=== PATIENT | female | born 1970 | race Two or more races ===

== ENCOUNTER 2020-06-28 08:59 | Inpatient (IN) | payer MEDICAID ==
[~2020-06-28] VITALS: Ht 170.2 cm; Wt 88.5 kg
[2020-06-28] MEDS ORDERED: AZITHROMYCIN 500MG/ 250ML 250 ML IV ONE (10:00)
[2020-06-28] MEDS ORDERED: methylPREDNISolone SOD SUCC 125 MG/2 ML VL IV ONE (10:00)
[2020-06-28] MEDS ORDERED: SODIUM CHLORIDE 0.9% 500 ML IV ONE (10:00)
[2020-06-28 10:50] LABS: Basophils # (auto) 0 10 ^3/uL (0-0.2); Basophils % (auto) 0.3 % (0.0-2.0); Eosinophils # (auto) 0 10 ^3/uL (0-0.8); Eosinophils % (auto) 0.3 % (0.0-7.0); Hematocrit 43.6 % (36.0-46.0); Hemoglobin 14.9 g/dL (12.2-16.2); Lymphocytes # (auto) 0.8 10 ^3/uL (0.4-5.4); Lymphocytes % (auto) 20.6 % (10.0-50.0); Mean Corpuscular Hgb Conc. 34.2 g/dL (32.0-36.0); Mean Corpuscular Volume 87.7 fL (80.0-100.0); Monocytes # (auto) 0.4 10 ^3/uL (0-1.3); Monocytes % (auto) 9.7 % (0.0-12.0); Neutrophils # (auto) 2.5 10 ^3/uL (1.6-8.6); Neutrophils % (auto) 69.1 % (37.0-80.0); Platelet Count (auto) 174 10^3/uL (140-450); Red Blood Cells 4.97 10^6/uL (4.0-5.20); Red Cell Distribution Width 14.4 % (11.8-14.3); White Blood Cell 3.7 10^3/uL (4.4-10.8)
[2020-06-28 11:08] LABS: Albumin 3.2 g/dL (3.4-5.0); Calcium 8.5 mg/dL (8.5-10.1); Potassium 3.7 mmol/L (3.5-5.1)
[2020-06-28 11:17] LABS: BUN/Creatinine Ratio 17.8; Bilirubin, Total 0.4 mg/dL (0.2-1.0); CRP High Sensitivity 3.76 mg/dL (< 0.3); Total Protein 7.9 g/dL (6.4-8.2)
[2020-06-28] MEDS ORDERED: ALBUTEROL SULF HFA 90MCG INH 200DOSE IN PRN (15:45)
[2020-06-28] MEDS ORDERED: PROMETHAZINE HCL 25 MG/ML 1ML IV PRN (15:45)
[2020-06-28] MEDS ORDERED: diphenhdrAMINE HCL 50 MG/1 ML VL IV PRN (15:45)
[2020-06-28] MEDS ORDERED: TEMAZEPAM 15 MG CAP PO PRN (15:45)
[2020-06-28] MEDS ORDERED: NITROGLYCERIN 0.4 MG SL TAB SL PRN (15:45)
[2020-06-28] MEDS ORDERED: MORPHINE SULF INJ 2 MG/ML SYRINGE 1ML IV PRN ×2 (15:45)
[2020-06-28] MEDS ORDERED: ACETAMINOPHEN 500 MG TAB PO PRN (15:45)
[2020-06-28] MEDS ORDERED: traMADol HCL 50 MG TAB PO PRN (15:45)
[2020-06-28] MEDS ORDERED: REMDESIVIR PER PHARMACY 0 ML IV SCH (15:45)
[2020-06-28] MEDS ORDERED: REMDESIVIR 200 MG in NS 210ml LOADING DOSE ADULT IV ONE (20:30)
[2020-06-28] MEDS: ENOXAPARIN SOD 40 MG/0.4 ML SYRINGE SC SCH (22:00)
[2020-06-29] VITALS (10 sets, daily range): BP systolic 116–131; BP diastolic 71–87
[2020-06-29] MEDS: FAMOTIDINE (10MG/ML) 2ML VL IV SCH ×3 (00:50→21:50)
[2020-06-29 06:15] LABS: Basophils # (auto) 0 10 ^3/uL (0-0.2); Basophils % (auto) 0.3 % (0.0-2.0); Eosinophils # (auto) 0 10 ^3/uL (0-0.8); Hematocrit 39.7 % (36.0-46.0); Hemoglobin 13.9 g/dL (12.2-16.2); Lymphocytes # (auto) 0.9 10 ^3/uL (0.4-5.4); Lymphocytes % (auto) 28.5 % (10.0-50.0); Mean Corpuscular Hemoglobin 30.6 pg (28.0-32.0); Mean Corpuscular Hgb Conc. 34.9 g/dL (32.0-36.0); Mean Corpuscular Volume 87.5 fL (80.0-100.0); Monocytes # (auto) 0.4 10 ^3/uL (0-1.3); Monocytes % (auto) 13.2 % (0.0-12.0); Neutrophils # (auto) 1.8 10 ^3/uL (1.6-8.6); Platelet Count (auto) 188 10^3/uL (140-450); Red Blood Cells 4.54 10^6/uL (4.0-5.20); Red Cell Distribution Width 14.1 % (11.8-14.3); White Blood Cell 3.1 10^3/uL (4.4-10.8)
[2020-06-29 06:26] LABS: Potassium 3.7 mmol/L (3.5-5.1)
[2020-06-29 06:36] LABS: Albumin 2.9 g/dL (3.4-5.0); BUN/Creatinine Ratio 19.7; Bilirubin, Total 0.4 mg/dL (0.2-1.0); Calcium 8.1 mg/dL (8.5-10.1); Total Protein 7.6 g/dL (6.4-8.2)
[2020-06-29] MEDS: guaiFENesin-DM 100/10mg/5ml SYR PO PRN ×2 (09:36→16:51)
[2020-06-29] MEDS: CHOLECALCIFEROL (VITD3) 2,000 UNIT CAP PO SCH (09:37)
[2020-06-29] MEDS: ENOXAPARIN SOD 40 MG/0.4 ML SYRINGE SC SCH ×2 (09:38→21:50)
[2020-06-29] MEDS: ASCORBIC ACID 1,000 MG TAB PO SCH (09:38)
[2020-06-29] MEDS: ZINC SULFATE 220mg CAP or TAB PO SCH (09:38)
[2020-06-29] MEDS: DexAMETHasone SOD PHOS 10MG/1ML VIAL INJ IV SCH (09:40)
[2020-06-29] MEDS: AZITHROMYCIN 500MG/ 250ML 250 ML IV SCH (09:43)
[2020-06-29] MEDS ORDERED: levoFLOXacin 500MG 100 ML IV SCH (10:00)
[2020-06-29] MEDS ORDERED: FUROSEMIDE 40 MG/4 ML VIAL IV ONE (10:30)
[2020-06-29] MEDS: REMDESIVIR 100 MG in SODIUM CHL 0.9% 250 ML IV SCH (15:23)
[2020-06-30 00:18] VITALS: BP 131/82
[2020-06-30 04:56] VITALS: BP 143/82
[2020-06-30 06:04] LABS: Basophils # (auto) 0 10 ^3/uL (0-0.2); Basophils % (auto) 0.4 % (0.0-2.0); Eosinophils # (auto) 0 10 ^3/uL (0-0.8); Eosinophils % (auto) 0.1 % (0.0-7.0); Hematocrit 37.3 % (36.0-46.0); Hemoglobin 13.3 g/dL (12.2-16.2); Lymphocytes # (auto) 0.7 10 ^3/uL (0.4-5.4); Mean Corpuscular Hemoglobin 30.6 pg (28.0-32.0); Mean Corpuscular Hgb Conc. 35.7 g/dL (32.0-36.0); Mean Corpuscular Volume 85.6 fL (80.0-100.0); Monocytes # (auto) 0.4 10 ^3/uL (0-1.3); Monocytes % (auto) 14.8 % (0.0-12.0); Neutrophils # (auto) 1.4 10 ^3/uL (1.6-8.6); Neutrophils % (auto) 57.7 % (37.0-80.0); Platelet Count (auto) 216 10^3/uL (140-450); Red Blood Cells 4.36 10^6/uL (4.0-5.20); Red Cell Distribution Width 13.9 % (11.8-14.3); White Blood Cell 2.4 10^3/uL (4.4-10.8)
[2020-06-30 06:23] LABS: Potassium 3.7 mmol/L (3.5-5.1)
[2020-06-30 06:34] LABS: Bilirubin, Total 0.4 mg/dL (0.2-1.0); Total Protein 7.8 g/dL (6.4-8.2)
[2020-06-30 07:08] LABS: CRP High Sensitivity 3.68 mg/dL (< 0.3)
[2020-06-30] MEDS: BUDESONIDE (INHALATION) 180 MCG IH IN SCH ×4 (07:34→22:00)
[2020-06-30 08:00] VITALS: BP 141/78
[2020-06-30] MEDS: ZINC SULFATE 220mg CAP or TAB PO SCH (10:13)
[2020-06-30] MEDS: FAMOTIDINE (10MG/ML) 2ML VL IV SCH ×2 (10:13→22:05)
[2020-06-30] MEDS: AZITHROMYCIN 500MG/ 250ML 250 ML IV SCH (10:13)
[2020-06-30] MEDS: POTASSIUM CHL 10 Meq TABLET PO SCH (10:13)
[2020-06-30] MEDS: ENOXAPARIN SOD 40 MG/0.4 ML SYRINGE SC SCH ×2 (10:14→22:05)
[2020-06-30] MEDS: ASCORBIC ACID 1,000 MG TAB PO SCH (10:14)
[2020-06-30] MEDS: CHOLECALCIFEROL (VITD3) 2,000 UNIT CAP PO SCH (10:14)
[2020-06-30] MEDS: DexAMETHasone SOD PHOS 10MG/1ML VIAL INJ IV SCH (10:14)
[2020-06-30] MEDS: guaiFENesin-DM 100/10mg/5ml SYR PO PRN (10:18)
[2020-06-30] MEDS: FUROSEMIDE 20 MG/2 ML VIAL IV SCH (10:31)
[2020-06-30] MEDS: REMDESIVIR 100 MG in SODIUM CHL 0.9% 250 ML IV SCH (14:43)
[2020-06-30 16:00] VITALS: BP 115/17
[2020-07-01] VITALS: BP 123/76
[2020-07-01 07:48] VITALS: BP 140/86
[2020-07-01] MEDS: BUDESONIDE (INHALATION) 180 MCG IH IN SCH ×2 (09:44→18:50)
[2020-07-01] MEDS: DexAMETHasone SOD PHOS 10MG/1ML VIAL INJ IV SCH (09:45)
[2020-07-01] MEDS: ASCORBIC ACID 1,000 MG TAB PO SCH (09:45)
[2020-07-01] MEDS: FUROSEMIDE 20 MG/2 ML VIAL IV SCH (09:45)
[2020-07-01] MEDS: ZINC SULFATE 220mg CAP or TAB PO SCH (09:45)
[2020-07-01] MEDS: FAMOTIDINE (10MG/ML) 2ML VL IV SCH ×2 (09:45→21:18)
[2020-07-01] MEDS: AZITHROMYCIN 500MG/ 250ML 250 ML IV SCH (09:46)
[2020-07-01] MEDS: CHOLECALCIFEROL (VITD3) 2,000 UNIT CAP PO SCH (09:46)
[2020-07-01] MEDS: POTASSIUM CHL 10 Meq TABLET PO SCH (09:46)
[2020-07-01] MEDS: ENOXAPARIN SOD 40 MG/0.4 ML SYRINGE SC SCH ×2 (09:46→21:18)
[2020-07-01] MEDS: guaiFENesin-DM 100/10mg/5ml SYR PO PRN (10:21)
[2020-07-01 15:58] VITALS: BP 110/72
[2020-07-01] MEDS: REMDESIVIR 100 MG in SODIUM CHL 0.9% 250 ML IV SCH (16:39)
[2020-07-02] VITALS: BP 145/83
[2020-07-02] MEDS: BUDESONIDE (INHALATION) 180 MCG IH IN SCH (07:00)
[2020-07-02 08:00] VITALS: BP 125/75
[2020-07-02] MEDS: AZITHROMYCIN 500MG/ 250ML 250 ML IV SCH (10:52)
[2020-07-02] MEDS: DexAMETHasone SOD PHOS 10MG/1ML VIAL INJ IV SCH (10:54)
[2020-07-02] MEDS: ENOXAPARIN SOD 40 MG/0.4 ML SYRINGE SC SCH (10:54)
[2020-07-02] MEDS: ASCORBIC ACID 1,000 MG TAB PO SCH (10:54)
[2020-07-02] MEDS: CHOLECALCIFEROL (VITD3) 2,000 UNIT CAP PO SCH (10:55)
[2020-07-02] MEDS: ZINC SULFATE 220mg CAP or TAB PO SCH (10:55)
[2020-07-02] MEDS: POTASSIUM CHL 10 Meq TABLET PO SCH (10:56)
[2020-07-02] MEDS: FAMOTIDINE (10MG/ML) 2ML VL IV SCH (10:56)
[2020-07-02] MEDS: FUROSEMIDE 20 MG/2 ML VIAL IV SCH (10:57)
[2020-07-02] MEDS ORDERED: ERGOCALCIFEROL 50,000 UNIT(1.25MG) CAP PO SCH (11:30)
[2020-07-02 14:42] VITALS: BP 125/75
[2020-07-02] MEDS: REMDESIVIR 100 MG in SODIUM CHL 0.9% 250 ML IV SCH (15:09)
[2020-07-02 16:24] VITALS: BP 120/60
== END 2020-07-02 18:50 | disposition home or self-care (01) | DRG 137 ==
LOC: ER 08:59 → TELE 09:00 → TELE-EAST 23:14
PROVIDERS: ADMIT Internal Medicine; ATTEND Internal Medicine
PROC: XW13325 Transfusion of Convalescent Plasma (Nonautologous) into Peripheral Vein, Percutaneous Approach, New Technology Group 5 (ICD-10-PCS; principal; 2020-06-29)
PROC: XW033E5 Introduction of Remdesivir Anti-infective into Peripheral Vein, Percutaneous Approach, New Technology Group 5 (ICD-10-PCS; 2020-06-29)
DX: U07.1 COVID-19 (principal); J96.01 Acute respiratory failure with hypoxia; J12.89 Other viral pneumonia; E66.9 Obesity, unspecified; R19.7 Diarrhea, unspecified; Z83.3 Family history of diabetes mellitus; Z68.30 Body mass index [BMI] 30.0-30.9, adult; Z79.899 Other long term (current) drug therapy
CPT/HCPCS: 36415; 71045; 80053; 82306; 82728; 83036; 83615; 85025; 85379; 86141; 86850; 86900; 86901; 94640; G0378; J1100; J1956; J3490